=== PATIENT | female | born 1945 | race Asian ===

== ENCOUNTER → 2017-06-11 | Emergency (ER) | payer SELFPAY | END | disposition home or self-care (01) | LOC: SED 14:30 | DX: S16.1XXA Strain of muscle, fascia and tendon at neck level, initial encounter (principal); V49.59XA Passenger injured in collision with other motor vehicles in traffic accident, initial encounter; Y93.89 Activity, other specified; Y92.89 Other specified places as the place of occurrence of the external cause; Y99.8 Other external cause status | CPT/HCPCS: 99283 ==